=== PATIENT | male | born 1985 | race Caucasian/White ===

== ENCOUNTER 2017-08-05 07:37 | Day surgery (SDC) | payer OTHER ==
--- NOTE | 2017-08-05 09:55 | C.PDOC ---
History Of Present Illness 32 y/o male presents to the ER complaining of low back pain which has been present for the past 1.5 weeks. Patient states that there is no radiation. Patient reports that he was seen by shading painter Dr. Lux Quiñones. Patient reports that he had an MRI which showed a bulging disc. He notes that he has some kind of injection of in his back which provided improvement. However , he states that the pain has become worse over the past few days. Patient denies having weakness, numbness, and urinary symptoms. Time Seen by Provider: 08/05/17 07:41 Chief Complaint (Nursing): Back Pain History Per: Patient History/Exam Limitations: no limitations Onset/Duration Of Symptoms: Days Current Symptoms Are (Timing): Still Present Severity: Moderate Past Medical History Reviewed: Historical Data, Nursing Documentation, Vital Signs Vital Signs: Last Vital Signs Temp 97.8 F 08/05/17 11:50 Pulse 78 08/05/17 11:50 Resp 20 08/05/17 11:50 BP 113/71 08/05/17 11:50 Pulse Ox 98 08/05/17 19:39 - Medical History PMH: No Chronic Diseases Surgical History: No Surg Hx Family History: States: No Known Family Hx - Social History Hx Alcohol Use: Yes Hx Substance Use: No - Immunization History Hx Tetanus Toxoid Vaccination: No Hx Influenza Vaccination: No Hx Pneumococcal Vaccination: No Review Of Systems Except As Marked, All Systems Reviewed And Found Negative. Constitutional: Negative for: Fever, Chills Genitourinary: Negative for: Dysuria, Hematuria Musculoskeletal: Positive for: Back Pain (low back pain) Neurological: Negative for: Weakness, Numbness Physical Exam - Physical Exam Appears: Non-toxic, No Acute Distress Skin: Normal Color, Warm Head: Atraumatic, Normacephalic Eye(s): bilateral: Normal Inspection Nose: Normal Oral Mucosa: Moist Neck: Supple Chest: Symmetrical Cardiovascular: Rhythm Regular Respiratory: Normal Breath Sounds, No Rales, No Rhonchi, No Wheezing Back: Other (tenderness in lower back) Neurological/Psych: Oriented x3, Normal Speech ED Course And Treatment O2 Sat by Pulse Oximetry: 98 (RA) Pulse Ox Interpretation: Normal Progress Note: Case discussed with .Dr. Quiñones instructed for an IV line to be started and for patient to be given Toradol IV. came to see the patient in the ER for a spinal injection. Patient was transferred to [facility] for surgery. Disposition - Disposition Disposition: HOSPITALIZED Disposition Time: 09:54 Condition: GOOD - Clinical Impression Clinical Impression: Low back strain - PA / PROCESS AUTOMATION ENGINEER / Resident Statement MD/DO has reviewed & agrees with the documentation as recorded. - Scribe Statement The provider has reviewed the documentation as recorded by the Rhondaibe Rossy Weems Provider Attestation All medical record entries made by the Rhondaibbimal were at my direction and personally dictated by me. I have reviewed the chart and agree that the record accurately reflects my personal performance of the history, physical exam, medical decision making, and the department course for this patient. I have also personally directed, reviewed, and agree with the discharge instructions and disposition. Decision To Admit - Pt Status Changed To: Hospital Disposition Of: [facility]- Endo,OR,Cath,IR - . Bed Request Type: Same Day Surgery Admitting Physician: Lux Quiñones Patient Diagnosis: Low back strain
[2017-08-05] MEDS ORDERED: Triamcinolone Acetonide 40 mg/mL Inj ONE (10:17)
[2017-08-05] MEDS ORDERED: Bupivacaine 0.25% Inj(30mL) IJ ONE (10:19)
[2017-08-05] MEDS ORDERED: Lidocaine Hydrochloride 5 ML INJ ONE (10:24)
[2017-08-05] MEDS ORDERED: Midazolam 2 MG/2 ML VIAL ONE (10:35)
[2017-08-05 11:58] VITALS: BP 113/71; PULSE 78; RESP 20; TEMP 97.8
[2017-08-05 13:20] VITALS: O2SAT 98
--- NOTE | 2017-08-05 15:00 | RAD ---
PROCEDURE: Intraoperative Fluoroscopy. HISTORY: LOWER BACK STRAIN FINDINGS: Fluoroscopic assistance was provided for lumbar epidural steroid injection.. Please refer to the operative report from IVAN King. Total fluoroscopic time (continuous mode) utilized during the procedure 21.9 (seconds).
--- NOTE | 2017-09-07 22:22 | OP ---
PROCEDURE DATE: 08/05/2017 PREOPERATIVE DIAGNOSIS: Lumbar strain. POSTOPERATIVE DIAGNOSIS: Lumbar strain. PROCEDURE: Bilateral lumbar facet injections at L3-4, L4-5, L5-S1 under fluoroscopic guidance. INDICATIONS: The patient was identified in the holding area and after detailed discussion of outlined risks, benefits, complications, and alternatives of the procedure, a consent was obtained from the patient for the procedure. The patient clinically had symptoms of lumbar strain with pain in the back, radiating to the hips, reproduced with facet loading bilaterally with associated marked facet tenderness. DESCRIPTION OF PROCEDURE: The patient was brought into the operating room and laid prone on the table. The back was prepped and draped in a sterile surgical fashion. The lumbar facets at the bilateral L3-4, L4-5, L5-S1 areas were identified and the skin overlying these areas were infiltrated at each level using a 3 mL of lidocaine 1% with 25-gauge needle. A 22-gauge 3.5-inch spinal needle was then inserted into the lower facets at the bilateral L3-4, L4-5, L5-S1 levels with 1 mL solution containing 40 mg of Kenalog and 0.25% of Sensorcaine injected after negative aspiration for heme and CSF. were flushed with preservative-free saline prior to withdrawal. The patient tolerated the procedure without any paresthesias at any time during the procedure or thereafter. The patient was transferred to the PACU where verbal report was given to the nurse taking care of the patient. The patient was then discharged in stable condition with advice to follow up with pain management in the office. Lux Quiñones MD
== END 2017-08-05 12:10 | disposition home or self-care (01) ==
LOC: C.SDS 07:37 → C.ER 07:37 → C.SDS 09:59
PROVIDERS: ATTEND Anesthesiology
DX: S39.012A Strain of muscle, fascia and tendon of lower back, initial encounter (principal); R15.9 Full incontinence of feces; R32 Unspecified urinary incontinence; M47.812 Spondylosis without myelopathy or radiculopathy, cervical region
CPT/HCPCS: 62323; 96374; 99285; J1885; J2250; J2765; J3010; J3301